=== PATIENT | male | born 1955 | race Caucasian/White ===

== ENCOUNTER 2016-11-29 08:14 | Day surgery (SDC) | payer OTHER ==
[~2016-11-29] VITALS: Ht 172.7 cm; Wt 87.8 kg
[2016-11-29 08:56] VITALS: Ht 172.7 cm; Wt 87.8 kg
[2016-11-29] MEDS ORDERED: CARB100T2 PO (09:05)
[2016-11-29] MEDS ORDERED: ASPI-664 PO (09:05)
[2016-11-29] MEDS ORDERED: ATOR40TA68 PO (09:05)
[2016-11-29 09:07] VITALS: BP 113/68; PULSE 68; RESP 12
[2016-11-29] MEDS ORDERED: MIDAZOLAM 1 MG/ML 2 ML INJ ONE ×2 (09:58)
[2016-11-29] MEDS ORDERED: FENTAnyl 50 MCG/ML VIAL ONE (09:58)
[2016-11-29 10:15] VITALS: BP 117/64; PULSE 61; RESP 18
--- NOTE | 2016-11-29 20:27 | GILP ---
DATE OF PROCEDURE: PROCEDURE: Colonoscopy. PREOPERATIVE DIAGNOSIS: The patient presenting with history of no significant problems. This is a screening colonoscopy to rule out colon polyps. POSTOPERATIVE DIAGNOSES: 1. A 4 mm flat polyp noted in the fold in the cecum. 2. There is evidence of 3 tiny polyps close together noted at 15 cm from the anus. Most of these p olyps were removed. 3. Minimal external hemorrhoids. DESCRIPTION OF PROCEDURE: After informed written consent was obtained, the patient was asked to lie on the left lateral side. The patient was given 3 mg Versed and 50 mcg of fentanyl as intravenous anesthesia. When the patient became somnolent, the Olympus video colonoscope was introduced into the rectum and scope was advanced all the way to the cecum. There is about 4 mm flat polyp that was noted on the f old in the cecum. This was removed with help of a cold biopsy forceps. At 15 cm from the anus, the re is evidence of 3 small polyps noted close to each other. These were removed also completely. Re st of the colon appeared normal. On the way out, minimal external hemorrhoids were noted. No addit ional abnormalities detected and the procedure was terminated. PLAN: Recommend wait for the pathology report. Dictated By: SOFIA LOWERY/ALEKSANDAR Conf#: [id number] DID#: [id number] CC: Leonie Dawson; SOFIA TENORIO MD;*[facility]*
== END 2016-11-29 11:23 | disposition home or self-care (01) ==
LOC: GIL 08:14
PROVIDERS: ATTEND Internal Medicine Gastroenterology
DX: Z12.11 Encounter for screening for malignant neoplasm of colon (principal); D12.0 Benign neoplasm of cecum; K64.4 Residual hemorrhoidal skin tags
CPT/HCPCS: 45380; 88305; J2250; J3010; Z7610